=== PATIENT | male | born 1925 | race Caucasian/White ===

== ENCOUNTER 2017-04-01 08:01 | Inpatient (IN) | payer MEDICARE, OTHER ==
--- NOTE | 2017-04-01 08:18 | EKG REPORT ---
SEVERITY:- ABNORMAL ECG - AFIB/FLUTTER AND VENTRICULAR-PACED RHYTHM : Confirmed by: Turner Luke MD 01-Apr-2017 08:17:27
[2017-04-01 09:39] LABS: TROPONIN I < 0.012 ng/mL
--- NOTE | 2017-04-01 09:59 | ER Document Report ---
ED General - General Mode of Arrival: Wheelchair Information source: Patient TRAVEL OUTSIDE OF THE [place] IN LAST 30 DAYS: No - HPI Patient complains to provider of: Chest Tightness Onset: Other - "Few days ago" Onset/Duration: Gradual, Persistent Associated symptoms: Productive cough, Leg swelling, Shortness of breath, Weakness Exacerbated by: Supine <MERE BLAIR - Last Filed: 04/01/17 09:50> <AUTUMN ALARCON - Last Filed: 04/01/17 10:51> - General Chief Complaint: Chest Pressure Stated Complaint: CHEST PAIN Notes: Patient is an 89-year-old male presenting to the emergency department concerned of chest tightness onset a few days ago. Patient reports the tightness worsens with laying down flat. Patient also admits to increased fatigue, shortness of breath with exertion, productive cough, leg swelling, cold extremities, and pale skin. Patient has a history of asthma, atrial fibrillation, hypertension, hyperlipidemia. Patient sees his doctor every few days to get his bleeding time checked, and was told it was high on Tuesday, March 30. Patient's primary care physician is Dr. Posada, and his chief transfer and pumphouse operator is Dr. Stovall (MERE BLAIR) - Related Data Allergies/Adverse Reactions: aspirin Allergy (Verified 04/01/17 08:15) Past Medical History - General Information source: Patient, Relative - Daughter, [facility] Records - Social History Smoking Status: Never Smoker Chew tobacco use (# tins/day): No Frequency of alcohol use: None Drug Abuse: None Lives with: Spouse/Significant other Family History: Reviewed & Not Pertinent Patient has suicidal ideation: No Patient has homicidal ideation: No - Past Medical History Cardiac Medical History: Reports: Hx Atrial Fibrillation, Hx Hypercholesterolemia, Hx Hypertension Pulmonary Medical History: Reports: Hx Asthma Past Surgical History: Reports: Hx Cardiac Catheterization - Pacemaker, Hx Orthopedic Surgery - wrist, Other - Prostate <MERE BLAIR - Last Filed: 04/01/17 09:50> Review of Systems - Review of Systems Constitutional: See HPI, Malaise, Weakness, Other - Cold extremities EENT: No symptoms reported Cardiovascular: See HPI, Chest pain - Tightness Respiratory: See HPI, Cough, Short of breath - With exertion, Sputum Gastrointestinal: No symptoms reported Genitourinary: No symptoms reported Male Genitourinary: No symptoms reported Musculoskeletal: No symptoms reported Skin: No symptoms reported Hematologic/Lymphatic: No symptoms reported Neurological/Psychological: No symptoms reported -: Yes All other systems reviewed and negative <MERE BLAIR - Last Filed: 04/01/17 09:50> Physical Exam - General General appearance: Alert - HEENT Head: Normocephalic, Atraumatic Eyes: Normal Pupils: PERRL - Respiratory Respiratory status: No respiratory distress Chest status: Nontender Breath sounds: Productive cough - Cardiovascular Rhythm: Regular Heart sounds: Normal auscultation Murmur: No - Abdominal Inspection: Normal Distension: No distension Bowel sounds: Normal Tenderness: Nontender Organomegaly: No organomegaly - Back Back: Normal, Nontender - Extremities General upper extremity: Normal inspection, Nontender General lower extremity: Edema - 3+ pitting edema Calf: Other - Neurological Neuro grossly intact: Yes Cognition: Normal Orientation: AAOx4 Perri Coma Scale Eye Opening: Spontaneous Perri Coma Scale Verbal: Oriented [place] Coma Scale Motor: Obeys Commands Perri Coma Scale Total: 15 Speech: Normal - Psychological Associated symptoms: Normal affect, Normal mood - Skin Skin Temperature: Warm Skin Moisture: Dry Skin Color: Normal <MERE BLAIR - Last Filed: 04/01/17 09:50> Course - Laboratory Result Diagrams: 04/01/17 08:51 04/01/17 08:51 <MERE BLAIR - Last Filed: 04/01/17 09:50> - Laboratory Result Diagrams: 04/01/17 10:05 04/01/17 08:51 - Diagnostic Test Radiology reviewed: Image reviewed, Reports reviewed - Chest x-ray showed bilateral pleural effusions much larger on the left than the right. Possible loculated effusion. There is fluid in the fissure on the right. - EKG Interpretation by Vt EKG shows normal: Cement, Intervals, QRS Complexes, ST-T Waves Rate: Normal - 63 Rhythm: A.Fib, A.Flutter, Other - Ventricular paced rhythm When compared to previous EKG there are: Previous EKG unavailable - Consults Dr. Pereira Time consulted: 10:50 Consulted provider: will come to ER <AUTUMN ALARCON - Last Filed: 04/01/17 10:51> - Vital Signs Vital signs: Temp Pulse Resp BP Pulse Ox 97.5 F 63 19 134/70 H 97 05/05/17 08:12 04/01/17 08:12 04/01/17 09:01 04/01/17 09:01 04/01/17 09:05 - Laboratory Laboratory results interpreted by me: 04/01/17 04/01/17 04/01/17 08:51 08:51 08:51 RBC Hgb Hct Seg Neutrophils % Lymphocytes % PT 48.5 H Sodium 134.0 L Chloride 97 L BUN 24 H Creatinine 1.36 H Est GFR (Non-Af Amer) 49 L Direct Bilirubin 0.5 H Creatine Kinase 54 L NT-Pro-B Natriuret Pep 4330 H Albumin 3.4 L 04/01/17 10:05 RBC 3.69 L Hgb 11.3 L Hct 34.7 L Seg Neutrophils % 80.8 H Lymphocytes % 7.5 L PT Sodium Chloride BUN Creatinine Est GFR (Non-Af Amer) Direct Bilirubin Creatine Kinase NT-Pro-B Natriuret Pep Albumin Discharge <MERE BLAIR - Last Filed: 04/01/17 09:50> - Discharge Admitting Provider: Hospitalist Unit Admitted: IMCU <AUTUMN ALARCON - Last Filed: 04/01/17 10:51> - Discharge Clinical Impression: Bilateral pleural effusion, Peripheral edema, Anticoagulation excessive, Chronic atrial fibrillation Dyspnea Qualifiers: Dyspnea type: shortness of breath Qualified Code(s): R06.02 - Shortness of breath Condition: Stable Disposition: ADMITTED INPATIENT Scribe Attestation: 04/01/17 10:51 I personally performed the services described in the documentation, reviewed and edited the documentation which was dictated to the scribe in my presence, and it accurately records my words and actions. (AUTUMN ALARCON) Scribe Documentation - Scribe Written by Ankit:: Mere Blair 04/01/2017 0951 acting as scribe for :: Brionna <MERE BLAIR - Last Filed: 04/01/17 09:50>
[2017-04-01 10:03] LABS: ALANINE AMINOTRANSFERASE 57 U/L (21-72); ALBUMIN 3.4 g/dL (3.5-5.0); ALKALINE PHOSPHATASE 106 U/L (38-126); ANION GAP 10 (5-19); ASPARTATE AMINO TRANSFERASE 51 U/L (17-59); BILIRUBIN,DIRECT 0.5 mg/dL (0.0-0.4); BILIRUBIN,TOTAL 1.1 mg/dL (0.2-1.3); BLOOD UREA NITROGEN 24 mg/dL (7-20); CALCIUM 9.1 mg/dL (8.4-10.2); CARBON DIOXIDE 27 mmol/L (22-30); CHLORIDE 97 mmol/L (98-107); CREATINE KINASE 54 U/L (55-170); CREATININE RESULT 1.36 mg/dL (0.52-1.25); GLUCOSE 92 mg/dL (75-110); POTASSIUM 4.7 mmol/L (3.6-5.0); TOTAL PROTEIN 6.3 g/dL (6.3-8.2)
[2017-04-01 10:14] LABS: ABSOLUTE EOSINOPHILS # (AUTO) 0.1 10^3/uL (0.0-0.6); ABSOLUTE LYMPHOCYTES (AUTO) 0.5 10^3/uL (0.5-4.7); ABSOLUTE MONOCYTES (AUTO) 0.7 10^3/uL (0.1-1.4); ABSOLUTE NEUT (AUTO) 5.1 10^3/uL (1.7-8.2); BASOPHILS % (AUTO) 0.2 % (0-2); EOSINOPHILS % (AUTO) 0.9 % (0-6); HEMATOCRIT 34.7 % (37.9-51.0); HEMOGLOBIN 11.3 g/dL (13.5-17.0); HGB HCT DIFFERENCE -0.8; LYMPHOCYTES % (AUTO) 7.5 % (13-45); MEAN CORPUSCULAR HEMOGLOBIN 30.8 pg (27.0-33.4); MEAN CORPUSCULAR HGB CONC 32.7 g/dL (32.0-36.0); MEAN CORPUSCULAR VOLUME 94 fl (80-97); MONOCYTES % (AUTO) 10.6 % (3-13); RED BLOOD COUNT 3.69 10^6/uL (4.35-5.55); RED CELL DISTRIBUTION WIDTH 13.5 % (11.5-14.0); SEGMENTED NEUTROPHILS % (AUTO) 80.8 % (42-78); WHITE BLOOD COUNT 6.4 10^3/uL (4.0-10.5)
[2017-04-01 10:42] LABS: PROTHROMBIN TIME 48.5 SEC (11.4-15.4)
[2017-04-01] MEDS ORDERED: FUROSEMIDE INJ/PF 20 MG/2 ML SDV IV ONE (10:45)
[2017-04-01] MEDS ORDERED: ONDANSETRON HCL INJ/PF 4 MG/2 ML SDV IV PRN (11:30)
[2017-04-01] MEDS ORDERED: ONDANSETRON 4 MG TAB.RAPDIS PO PRN (11:30)
[2017-04-01] MEDS ORDERED: ACETAMINOPHEN 325 MG TABLET PO PRN (11:30)
[2017-04-01] MEDS ORDERED: ALBUTEROL SULFATE 0.083% NEB 2.5 MG/3 ML AMPUL NEB PRN (11:30)
--- NOTE | 2017-04-01 11:52 | PDOC H&P ---
History of Present Illness Admission Date/PCP: 04/01/17 11:40 ANCA HERNANDEZ MD Patient complains of: Shortness of breath for the last several days. History of Present Illness: ILIANA WINN is a 89 year old male with no history of congestive heart failure who presents with a 3 or 4 day history of worsening shortness of breath. He also has had lower extremity edema along with orthopnea and PND. The patient is followed by [facility] cardiology and reports he has had atrial fibrillation but has no history of coronary artery disease and has never had congestive heart failure. He related to the emergency room physician that he had chest pain although he denied that to me. He denies any change in his dietary habits. He reports that he has been compliant with his medications. He has had dyspnea on exertion of about 20 feet over the last 2 days. He also reports having gained some weight. He denies have any palpitations or tachycardia. He thought that this may be related to his metoprolol. Past Medical History Cardiac Medical History: Reports: Atrial Fibrillation, Hyperlipidema, Hypertension Pulmonary Medical History: Reports: Asthma EENT Medical History: Reports: Other - Macular degeneration Neurological Medical History: Reports: None Endocrine Medical History: Reports: None Renal/ Medical History: Reports: None Malignancy Medical History: Reports: None GI Medical History: Reports: None Skin Medical History: Reports: None Psychiatric Medical History: Reports: None Traumatic Medical History: Reports: None Hematology: Reports: None Infectious Medical History: Reports: None Past Surgical History Past Surgical History: Reports: Orthopedic Surgery - wrist, Pacemaker, Other - Prostate Social History Information Source: Patient Lives with: Spouse/Significant other Smoking Status: Never Smoker Frequency of Alcohol Use: None Hx Recreational Drug Use: No Drugs: None - Advance Directive Resuscitation Status: Full Code Surrogate healthcare decision maker:: His Family History Family History: Father at age 86 from cancer. Mother at age 90 from a CVA. Parental Family History Reviewed: Yes Children Family History Reviewed: No Sibling(s) Family History Reviewed.: No Medication/Allergy Allergies/Adverse Reactions: aspirin Allergy (Verified 04/01/17 08:15) Review of Systems Constitutional: PRESENT: weight gain. ABSENT: chills, fever(s), headache(s) Eyes: ABSENT: visual disturbances Ears: ABSENT: hearing changes Cardiovascular: PRESENT: dyspnea on exertion, edema, orthropnea. ABSENT: chest pain, palpitations Respiratory: PRESENT: dyspnea. ABSENT: cough, hemoptysis, sputum Gastrointestinal: ABSENT: abdominal pain, constipation, diarrhea, hematemesis, hematochezia, nausea, vomiting Genitourinary: ABSENT: dysuria, hematuria Musculoskeletal: ABSENT: joint swelling Integumentary: ABSENT: rash, wounds Neurological: ABSENT: abnormal gait, abnormal speech, confusion, dizziness, focal weakness, syncope Psychiatric: ABSENT: anxiety, depression Endocrine: ABSENT: cold intolerance, heat intolerance, polydipsia, polyuria Hematologic/Lymphatic: ABSENT: easy bleeding, easy bruising Physical Exam Vital Signs: Temp Pulse Resp BP Pulse Ox 97.5 F 63 19 134/70 H 97 04/01/17 08:12 04/01/17 08:12 04/01/17 09:01 04/01/17 09:01 04/01/17 09:05 General appearance: PRESENT: no acute distress, well-developed, well-nourished Head exam: PRESENT: atraumatic, normocephalic Eye exam: PRESENT: conjunctiva pink, EOMI, PERRLA. ABSENT: scleral icterus Ear exam: PRESENT: normal external ear exam Mouth exam: PRESENT: moist, tongue midline Neck exam: ABSENT: carotid bruit, JVD, lymphadenopathy, thyromegaly Respiratory exam: PRESENT: decreased breath sounds - Decreased breath sounds in the bases with a few inspiratory rails., rales. ABSENT: rhonchi, wheezes Cardiovascular exam: PRESENT: irregular rhythm. ABSENT: diastolic murmur, rubs , systolic murmur Vascular exam: PRESENT: normal capillary refill GI/Abdominal exam: PRESENT: normal bowel sounds, soft. ABSENT: distended, guarding, mass, organolmegaly, rebound, tenderness Rectal exam: PRESENT: deferred Extremities exam: PRESENT: pedal edema, +2 edema. ABSENT: calf tenderness, clubbing Neurological exam: PRESENT: alert, awake, oriented to person, oriented to place , oriented to time, oriented to situation, CN II-XII grossly intact. ABSENT: motor sensory deficit Psychiatric exam: PRESENT: appropriate affect Skin exam: PRESENT: dry, intact, warm. ABSENT: cyanosis, rash Results Impressions: Chest X-Ray 04/01/17 09:05 IMPRESSION: Bilateral pleural changes as noted above most consistent with bilateral pleural effusions. I cannot exclude a loculated component. There is an associated ovoid density projected in the right mid lung field which may represent fluid within the fissure. Followup followup films are recommended to exclude an underlying process. Other findings as noted above Assessment & Plan - Diagnosis (1) Congestive heart failure Is this a current diagnosis for this admission?: YesPlan: Patient has no previous history of congestive heart failure. He does have atrial fibrillation. He has had no change in his diet. We will check an echocardiogram to see what his systolic function is. We'll check serial cardiac enzymes to make certain that this is not an acute cardiac event although is unlikely. He reports that he's never had a cardiac catheterization. He is a very high functioning 89-year-old. We'll give IV Lasix. (2) Chronic atrial fibrillation Is this a current diagnosis for this admission?: YesPlan: The patient is rate controlled currently. He has been on Coumadin but is supratherapeutic. We'll continue to hold Coumadin and watch his INR daily. He is normally followed at [facility] cardiology. (3) Hypertension Is this a current diagnosis for this admission?: YesPlan: Blood pressure is under good control. (4) Benign prostatic hyperplasia Is this a current diagnosis for this admission?: YesPlan: The patient is asymptomatic at this time. He does have a history of having laser surgery on his prostate (5) Hyperlipidemia Is this a current diagnosis for this admission?: Yes (6) Anticoagulation excessive Is this a current diagnosis for this admission?: YesPlan: We'll continue to hold his Coumadin and monitor his INR daily. (7) Bilateral pleural effusion Is this a current diagnosis for this admission?: YesPlan: Most likely related to congestive heart failure. Will diuresis and repeat a chest x-ray in several days. - Time Time Spent: 50 to 70 Minutes - Inpatient Certification Medical Necessity: Need Close Monitoring Due to Risk of Patient Decompensation - Plan Summary Plan Summary: We'll admit as a regular inpatient. I anticipate he will require greater than 2 midnight stay because of his acute congestive heart failure and need for IV diuretics.
[2017-04-01 15:52] LABS: CREATINE KINASE MB 0.89 ng/mL (<4.55)
[2017-04-01 15:58] LABS: TROPONIN I < 0.012 ng/mL
[2017-04-01] MEDS ORDERED: TRAMADOL HCL 50 MG TABLET PO PRN (18:20)
--- NOTE | 2017-04-01 19:34 | XCELERA REPORT ---
[address] [address] Transthoracic Echocardiogram Report Name: ILIANA WINN Age: 89 yrs Gender: Male : 1925 Patient Status: Inpatient Patient Location: 3W\S\320\S\A Study Date: 04/01/2017 01:17 PM Procedure: A complete two-dimensional transthoracic echocardiogram was performed (2D, M-mode, spectral and color flow Doppler). The study was technically difficult with many images being suboptimal in quality. Reason For Study: new onset chf Ordering Physician: EMMANUEL TRAMMELL Performed By: Krista Barfield Interpretation Summary The study was technically difficult with many images being suboptimal in quality. The Ejection Fraction estimate is 45-50% Left ventricular systolic function is mildly reduced. Doppler measurements suggest pseudonormalized left ventricular relaxation, which is associated with grade II/IV or mild to moderate diastolic dysfunction There is borderline concentric left ventricular hypertrophy. The left ventricle is grossly normal size. Wall motion cannot be accurately commented on, but no definite regional wall motion abnormalities noted. The right ventricle is mild to moderately dilated. The right ventricular systolic function is normal. The right ventricle appears to be hypertrophied The left atrium is mildly dilated. The right atrium is mildly dilated. There is a mild amount of mitral regurgitation There is no mitral valve stenosis. No aortic regurgitation is present. There is no aortic valve stenosis There is a mild amount of tricuspid regurgitation There is moderate pulmonary hypertension by echo Right ventricular systolic pressure is estimated to be elevated at 50- 60mmHg. There is a mild amount of pulmonic regurgitation There is no pericardial effusion. The inferior vena cava appeared dilated and decreased < 50% with respiration (RAP 15-20 mmHg) MMode/2D Measurements \T\ Calculations RVDd: 2.6 cm LVIDd: 4.0 cm FS: 20.3 % Ao root diam: 2.1 cm IVSd: 0.94 cm LVIDs: 3.2 cm EDV(Teich): 71.1 ml Ao root area: 3.6 cm2 LVPWd: 0.85 cm ESV(Teich): 41.3 ml LA dimension: 4.2 cm EF(Teich): 41.9 % Doppler Measurements \T\ Calculations MV E max wyatt: MV P1/2t max wyatt: Ao V2 max: LV V1 max P.8 cm/sec 89.3 cm/sec 103.2 cm/sec 1.6 mmHg MV P1/2t: 56.7 msec Ao max PG: LV V1 max: MVA(P1/2t): 3.9 cm2 4.3 mmHg 62.7 cm/sec MV dec slope: 461.3 cm/sec2 PA V2 max: PI end-d wyatt: TR max wyatt: 80.9 cm/sec 104.5 cm/sec 297.3 cm/sec PA max PG: TR max P.6 mmHg 35.3 mmHg Left Ventricle The left ventricle is grossly normal size. There is borderline concentric left ventricular hypertrophy. Left ventricular systolic function is mildly reduced. The Ejection Fraction estimate is 45-50%. Doppler measurements suggest pseudonormalized left ventricular relaxation, which is associated with grade II/IV or mild to moderate diastolic dysfunction. Wall motion cannot be accurately commented on, but no definite regional wall motion abnormalities noted. Right Ventricle The right ventricle is mild to moderately dilated. The right ventricle appears to be hypertrophied. The right ventricular systolic function is normal. Atria The right atrium is mildly dilated. The left atrium is mildly dilated. Interarterial septum not well visualized and not well dopplered. Cannot comment on ASD/PFO presence. Mitral Valve There is mild mitral annular calcification. There is mild mitral leaflet calcification. There is no mitral valve stenosis. There is a mild amount of mitral regurgitation. Aortic Valve The aortic valve is not well visualized secondary to technical limitations. There is no aortic valve stenosis. No aortic regurgitation is present. Tricuspid Valve The tricuspid valve is not well visualized, but is grossly normal. There is no tricuspid stenosis. There is a mild amount of tricuspid regurgitation. There is moderate pulmonary hypertension by echo. Right ventricular systolic pressure is estimated to be elevated at 50-60mmHg. Pulmonic Valve The pulmonic valve is not well visualized. There is no pulmonic valvular stenosis. There is a mild amount of pulmonic regurgitation. Great Vessels The aortic root is not well visualized. The inferior vena cava appeared dilated and decreased < 50% with respiration (RAP 15-20 mmHg). Effusions There is no pericardial effusion. : EMMANUEL TRAMMELL > Cee Victor
[2017-04-01 21:37] LABS: CREATINE KINASE MB 0.83 ng/mL (<4.55)
[2017-04-01 21:45] LABS: TROPONIN I < 0.012 ng/mL
[2017-04-01] MEDS: FUROSEMIDE INJ/PF 20 MG/2 ML SDV IV SCH (22:14)
[2017-04-01] MEDS: SIMVASTATIN 40 MG TABLET PO SCH (22:15)
[2017-04-01] MEDS: FAMOTIDINE 20 MG TABLET PO SCH (22:15)
[2017-04-01] MEDS: METOPROLOL SUCCINATE 50 MG TAB.SR.24H PO SCH (22:16)
[2017-04-01 22:39] LABS: APPEARANCE,URINE CLEAR; BILIRUBIN,URINE NEGATIVE (NEGATIVE); GLUCOSE, URINE NEGATIVE (NEGATIVE); KETONES,URINE NEGATIVE (NEGATIVE); LEUKOCYTE ESTERASE,URINE NEGATIVE (NEGATIVE); NITRITE,URINE NEGATIVE (NEGATIVE); PROTEIN,URINE NEGATIVE (NEGATIVE); URINE SPECIFIC GRAVITY 1.006; UROBILINOGEN,URINE NEGATIVE mg/dL (<2.0)
[2017-04-02 05:55] LABS: HEMOGLOBIN 11.3 g/dL (13.5-17.0); HGB HCT DIFFERENCE 0.9; MEAN CORPUSCULAR HEMOGLOBIN 31.1 pg (27.0-33.4); MEAN CORPUSCULAR HGB CONC 34.2 g/dL (32.0-36.0); MEAN CORPUSCULAR VOLUME 91 fl (80-97); RED BLOOD COUNT 3.63 10^6/uL (4.35-5.55); RED CELL DISTRIBUTION WIDTH 13.1 % (11.5-14.0); WHITE BLOOD COUNT 6.5 10^3/uL (4.0-10.5)
[2017-04-02 06:20] LABS: ANION GAP 9 (5-19); BLOOD UREA NITROGEN 33 mg/dL (7-20); CALCIUM 8.7 mg/dL (8.4-10.2); CARBON DIOXIDE 29 mmol/L (22-30); CHLORIDE 98 mmol/L (98-107); CREATININE RESULT 1.48 mg/dL (0.52-1.25); GLUCOSE 83 mg/dL (75-110); PHOSPHORUS 3.7 mg/dL (2.5-4.5); POTASSIUM 3.8 mmol/L (3.6-5.0); SODIUM 135.7 mmol/L (137-145)
[2017-04-02] MEDS: METOPROLOL SUCCINATE 50 MG TAB.SR.24H PO SCH ×2 (08:16→21:04)
[2017-04-02] MEDS ORDERED: (PENDING PHARMACY ID) (Alfuzosin Hcl [Alfuzosin Hcl Er] 10 MG) PO SCH (10:00)
[2017-04-02] MEDS ORDERED: (PENDING PHARMACY ID) (Vitamin B Complex [Super B Complex] 1 EACH) PO SCH (10:00)
--- NOTE | 2017-04-02 10:01 | PDOC PROGRESS REPORT ---
Subjective Progress Note for:: 04/02/17 Subjective:: Reports he is much less short of breath. Physical Exam Vital Signs: Temp Pulse Resp BP Pulse Ox 98.0 F 65 18 113/64 98 04/02/17 07:16 04/02/17 08:00 04/02/17 08:00 04/02/17 07:16 04/02/17 08:00 Intake & Output 04/01/17 04/02/17 04/03/17 06:59 06:59 06:59 Intake Total 624 Output Total 1350 Balance -726 Weight 78.4 kg General appearance: PRESENT: no acute distress Eye exam: PRESENT: conjunctiva pink. ABSENT: scleral icterus Mouth exam: PRESENT: moist, tongue midline Neck exam: ABSENT: JVD Respiratory exam: PRESENT: rales - Few basilar rails. ABSENT: rhonchi, wheezes Cardiovascular exam: PRESENT: RRR. ABSENT: diastolic murmur, rubs, systolic murmur GI/Abdominal exam: PRESENT: normal bowel sounds, soft. ABSENT: distended, guarding, mass, organolmegaly, rebound, tenderness Extremities exam: PRESENT: pedal edema, +1 edema. ABSENT: calf tenderness, clubbing Neurological exam: PRESENT: alert, awake, oriented to person, oriented to place , oriented to time, oriented to situation, CN II-XII grossly intact. ABSENT: motor sensory deficit Psychiatric exam: PRESENT: appropriate affect Skin exam: PRESENT: dry, intact, warm. ABSENT: cyanosis, rash Results Laboratory Results: 04/02/17 05:11 04/02/17 05:11 04/01/17 04/02/17 04/02/17 22:05 05:11 05:11 WBC 6.5 RBC 3.63 L Hgb 11.3 L Hct 33.0 L MCV 91 MCH 31.1 MCHC 34.2 RDW 13.1 Plt Count 143 L Sodium 135.7 L Potassium 3.8 Chloride 98 Carbon Dioxide 29 Anion Gap 9 BUN 33 H Creatinine 1.48 H Est GFR ( Amer) 54 L Est GFR (Non-Af Amer) 45 L Glucose 83 Calcium 8.7 Phosphorus 3.7 Urine Color YELLOW Urine Appearance CLEAR Urine pH 6.0 Ur Specific [place] 1.006 Urine Protein NEGATIVE Urine Glucose (UA) NEGATIVE Urine Ketones NEGATIVE Urine Blood NEGATIVE Urine Nitrite NEGATIVE Ur Leukocyte Esterase NEGATIVE Urine WBC (Auto) 0 Urine RBC (Auto) 0 04/01/17 04/01/17 04/01/17 15:03 15:03 21:01 Creatine Kinase 38 L 41 L CK-MB (CK-2) 0.89 Troponin I < 0.012 04/01/17 21:01 Creatine Kinase CK-MB (CK-2) 0.83 Troponin I < 0.012 Impressions: Chest X-Ray 04/01/17 09:05 IMPRESSION: Bilateral pleural changes as noted above most consistent with bilateral pleural effusions. I cannot exclude a loculated component. There is an associated ovoid density projected in the right mid lung field which may represent fluid within the fissure. Followup followup films are recommended to exclude an underlying process. Other findings as noted above Assessment & Plan - Diagnosis (1) Congestive heart failure Is this a current diagnosis for this admission?: YesPlan: Patient is much improved with the IV Lasix. Echocardiogram done yesterday shows he has both systolic and diastolic dysfunction. We'll continue with the IV Lasix. (2) Chronic atrial fibrillation Is this a current diagnosis for this admission?: YesPlan: The patient is rate controlled currently. He has been on Coumadin but is supratherapeutic. We'll continue to hold Coumadin and watch his INR daily. He is normally followed at [facility] cardiology. (3) Hypertension Is this a current diagnosis for this admission?: YesPlan: Blood pressure is under good control. (4) Benign prostatic hyperplasia Is this a current diagnosis for this admission?: YesPlan: The patient is asymptomatic at this time. He does have a history of having laser surgery on his prostate (5) Hyperlipidemia Is this a current diagnosis for this admission?: Yes (6) Anticoagulation excessive Is this a current diagnosis for this admission?: YesPlan: We'll continue to hold his Coumadin and monitor his INR daily. (7) Bilateral pleural effusion Is this a current diagnosis for this admission?: YesPlan: Most likely related to congestive heart failure. Will diuresis and repeat a chest x-ray in several days. - Time Time Spent with patient: 25-34 minutes - Inpatient Certification Medical Necessity: Need Close Monitoring Due to Risk of Patient Decompensation
[2017-04-02] MEDS: ASCORBIC ACID 500 MG TABLET PO SCH (10:03)
[2017-04-02] MEDS: CHOLECALCIFEROL (D3) 1,000 UNIT TABLET PO SCH (10:03)
[2017-04-02] MEDS: FAMOTIDINE 20 MG TABLET PO SCH ×2 (10:03→21:04)
[2017-04-02] MEDS: CALCIUM CARBONATE 500 MG TABLET PO SCH (10:03)
[2017-04-02] MEDS: FERROUS SULFATE 325 MG TABLET PO SCH (10:03)
[2017-04-02] MEDS: FUROSEMIDE INJ/PF 20 MG/2 ML SDV IV SCH ×2 (10:04→21:03)
[2017-04-02] MEDS: SIMVASTATIN 40 MG TABLET PO SCH (21:04)
[2017-04-03 05:01] LABS: ABSOLUTE EOSINOPHILS # (AUTO) 0.1 10^3/uL (0.0-0.6); ABSOLUTE LYMPHOCYTES (AUTO) 0.8 10^3/uL (0.5-4.7); ABSOLUTE NEUT (AUTO) 5.4 10^3/uL (1.7-8.2); BASOPHILS % (AUTO) 0.4 % (0-2); EOSINOPHILS % (AUTO) 1.6 % (0-6); HEMATOCRIT 33.5 % (37.9-51.0); HEMOGLOBIN 11.1 g/dL (13.5-17.0); HGB HCT DIFFERENCE -0.2; LYMPHOCYTES % (AUTO) 11.4 % (13-45); MEAN CORPUSCULAR HEMOGLOBIN 30.6 pg (27.0-33.4); MEAN CORPUSCULAR VOLUME 93 fl (80-97); MONOCYTES % (AUTO) 13.9 % (3-13); RED BLOOD COUNT 3.62 10^6/uL (4.35-5.55); RED CELL DISTRIBUTION WIDTH 13.3 % (11.5-14.0); SEGMENTED NEUTROPHILS % (AUTO) 72.7 % (42-78); WHITE BLOOD COUNT 7.4 10^3/uL (4.0-10.5)
[2017-04-03 05:22] LABS: ANION GAP 8 (5-19); BLOOD UREA NITROGEN 39 mg/dL (7-20); CALCIUM 8.9 mg/dL (8.4-10.2); CARBON DIOXIDE 30 mmol/L (22-30); CHLORIDE 97 mmol/L (98-107); CREATININE RESULT 1.56 mg/dL (0.52-1.25); GLUCOSE 96 mg/dL (75-110); POTASSIUM 3.3 mmol/L (3.6-5.0); SODIUM 135.4 mmol/L (137-145)
--- NOTE | 2017-04-03 09:38 | PDOC PROGRESS REPORT ---
Subjective Progress Note for:: 04/03/17 Subjective:: Reports he is much less short of breath. Physical Exam Vital Signs: Temp Pulse Resp BP Pulse Ox 97.5 F 61 14 96/52 L 96 04/03/17 07:25 04/03/17 07:25 04/03/17 07:25 04/03/17 07:25 04/03/17 07:25 Intake & Output 04/02/17 04/03/17 04/04/17 06:59 06:59 06:59 Intake Total 624 1005 Output Total 1350 2625 Balance -726 -1620 Weight 78.4 kg 77.8 kg General appearance: PRESENT: no acute distress Eye exam: PRESENT: conjunctiva pink. ABSENT: scleral icterus Ear exam: PRESENT: normal external ear exam Mouth exam: PRESENT: moist, tongue midline Neck exam: ABSENT: JVD Respiratory exam: PRESENT: clear to auscultation jeanne. ABSENT: rales, rhonchi, wheezes Cardiovascular exam: PRESENT: RRR. ABSENT: diastolic murmur, rubs, systolic murmur GI/Abdominal exam: PRESENT: normal bowel sounds, soft. ABSENT: distended, guarding, mass, organolmegaly, rebound, tenderness Extremities exam: PRESENT: pedal edema, +1 edema. ABSENT: calf tenderness, clubbing Neurological exam: PRESENT: alert, awake, oriented to person, oriented to place , oriented to time, oriented to situation, CN II-XII grossly intact. ABSENT: motor sensory deficit Psychiatric exam: PRESENT: appropriate affect Skin exam: PRESENT: dry, intact, warm. ABSENT: cyanosis, rash Results Laboratory Results: 04/03/17 04:44 04/03/17 04:44 04/03/17 04/03/17 04:44 04:44 WBC 7.4 RBC 3.62 L Hgb 11.1 L Hct 33.5 L MCV 93 MCH 30.6 MCHC 33.0 RDW 13.3 Plt Count 146 L Seg Neutrophils % 72.7 Lymphocytes % 11.4 L Monocytes % 13.9 H Eosinophils % 1.6 Basophils % 0.4 Absolute Neutrophils 5.4 Absolute Lymphocytes 0.8 Absolute Monocytes 1.0 Absolute Eosinophils 0.1 Absolute Basophils 0.0 Sodium 135.4 L Potassium 3.3 L Chloride 97 L Carbon Dioxide 30 Anion Gap 8 BUN 39 H Creatinine 1.56 H Est GFR ( Amer) 51 L Est GFR (Non-Af Amer) 42 L Glucose 96 Calcium 8.9 04/01/17 04/01/17 04/01/17 15:03 15:03 21:01 Creatine Kinase 38 L 41 L CK-MB (CK-2) 0.89 Troponin I < 0.012 04/01/17 21:01 Creatine Kinase CK-MB (CK-2) 0.83 Troponin I < 0.012 Impressions: Chest X-Ray 04/01/17 09:05 IMPRESSION: Bilateral pleural changes as noted above most consistent with bilateral pleural effusions. I cannot exclude a loculated component. There is an associated ovoid density projected in the right mid lung field which may represent fluid within the fissure. Followup followup films are recommended to exclude an underlying process. Other findings as noted above Assessment & Plan - Diagnosis (1) Congestive heart failure Is this a current diagnosis for this admission?: YesPlan: Patient is much improved with the IV Lasix. Echocardiogram shows he has both systolic and diastolic dysfunction. We'll continue with the IV Lasix. (2) Chronic atrial fibrillation Is this a current diagnosis for this admission?: YesPlan: The patient is rate controlled currently. He has been on Coumadin but is supratherapeutic. PT/INR has not yet done this morning. He is normally followed at [facility] cardiology. (3) Hypertension Is this a current diagnosis for this admission?: YesPlan: Blood pressure is under good control. (4) Benign prostatic hyperplasia Is this a current diagnosis for this admission?: YesPlan: The patient is asymptomatic at this time. He does have a history of having laser surgery on his prostate (5) Hyperlipidemia Is this a current diagnosis for this admission?: Yes (6) Anticoagulation excessive Is this a current diagnosis for this admission?: YesPlan: We'll continue to hold his Coumadin and monitor his INR daily. Today's INR has not yet been completed (7) Bilateral pleural effusion Is this a current diagnosis for this admission?: YesPlan: Most likely related to congestive heart failure. Will continue with diuresis and repeat a chest x-ray tomorrow morning - Time Time Spent with patient: 25-34 minutes - Inpatient Certification Medical Necessity: Need Close Monitoring Due to Risk of Patient Decompensation - Plan Summary Plan Summary: If he continues to improve we may be able to discharge home tomorrow after his chest x-ray.
[2017-04-03] MEDS: FAMOTIDINE 20 MG TABLET PO SCH ×2 (10:19→21:21)
[2017-04-03] MEDS: POTASSI CL 20 MEQ/50 ML RIDER 50 ML IV SCH ×2 (10:19→11:49)
[2017-04-03] MEDS: ASCORBIC ACID 500 MG TABLET PO SCH (10:19)
[2017-04-03] MEDS: METOPROLOL SUCCINATE 50 MG TAB.SR.24H PO SCH ×2 (10:19→21:20)
[2017-04-03] MEDS: CHOLECALCIFEROL (D3) 1,000 UNIT TABLET PO SCH (10:20)
[2017-04-03] MEDS: CALCIUM CARBONATE 500 MG TABLET PO SCH (10:20)
[2017-04-03] MEDS: FERROUS SULFATE 325 MG TABLET PO SCH (10:20)
[2017-04-03] MEDS: FUROSEMIDE INJ/PF 20 MG/2 ML SDV IV SCH ×2 (10:20→21:20)
[2017-04-03] MEDS: SIMVASTATIN 40 MG TABLET PO SCH (21:20)
[2017-04-04 08:26] VITALS: BP 118/60
[2017-04-04] MEDS: METOPROLOL SUCCINATE 50 MG TAB.SR.24H PO SCH (08:29)
[2017-04-04] MEDS: FUROSEMIDE INJ/PF 20 MG/2 ML SDV IV SCH (09:06)
[2017-04-04] MEDS: FAMOTIDINE 20 MG TABLET PO SCH (09:07)
[2017-04-04] MEDS: CALCIUM CARBONATE 500 MG TABLET PO SCH (09:07)
[2017-04-04] MEDS: ASCORBIC ACID 500 MG TABLET PO SCH (09:07)
[2017-04-04] MEDS: CHOLECALCIFEROL (D3) 1,000 UNIT TABLET PO SCH (09:07)
--- NOTE | 2017-04-04 09:08 | PDOC DISCHARGE SUMMARY ---
General - Admit/Disc Date/PCP Admission Date/Primary Care Provider: 04/01/17 11:30 ANCA HERNANDEZ MD Discharge Date: 04/04/17 - Discharge Diagnosis (1) Congestive heart failure Is this a current diagnosis for this admission?: YesSummary: Both systolic and diastolic failure on echocardiogram (2) Chronic atrial fibrillation Is this a current diagnosis for this admission?: Yes (3) Hypertension Is this a current diagnosis for this admission?: Yes (4) Benign prostatic hyperplasia Is this a current diagnosis for this admission?: Yes (5) Hyperlipidemia Is this a current diagnosis for this admission?: Yes (6) Anticoagulation excessive Is this a current diagnosis for this admission?: Yes (7) Bilateral pleural effusion Is this a current diagnosis for this admission?: Yes - Additional Information Resuscitation Status: Full Code Discharge Diet: Cardiac Discharge Activity: Activity As Tolerated, Weigh Daily Home Medications: Alfuzosin HCl [Alfuzosin HCl ER] 10 mg PO DAILY 04/01/17 Ascorbic Acid [Vitamin C 500 mg Tablet] 500 mg PO DAILY 04/01/17 Calcium Carbonate [Calcium] 500 mg PO DAILY 04/01/17 Cholecalciferol (Vitamin D3) [Vitamin D3 1000 Unit Tablet] 1,000 unit PO DAILY 04/01/17 Ferrous Sulfate [Feosol] 325 mg PO DAILY 04/01/17 Metoprolol Succinate [Toprol Xl 50 mg Tab.sr] 50 mg PO QAM 04/01/17 Metoprolol Succinate [Toprol Xl 50 mg Tab.sr] 100 mg PO QHS 04/01/17 Simvastatin 40 mg PO QHS 04/01/17 Tramadol HCl [Ultram 50 mg Tablet] 50 mg PO Q6HP PRN 04/01/17 Vitamin B Complex [Super B Complex] 1 each PO DAILY 04/01/17 Furosemide [Lasix] 20 mg PO DAILY #30 tablet 04/04/17 History of Present Illness History of Present Illness: ILIANA WINN is a 89 year old male with no history of congestive heart failure who presents with a 3 or 4 day history of worsening shortness of breath. He also has had lower extremity edema along with orthopnea and PND. The patient is followed by [facility] cardiology and reports he has had atrial fibrillation but has no history of coronary artery disease and has never had congestive heart failure. He related to the emergency room physician that he had chest pain although he denied that to me. He denies any change in his dietary habits. He reports that he has been compliant with his medications. He has had dyspnea on exertion of about 20 feet over the last 2 days. He also reports having gained some weight. He denies have any palpitations or tachycardia. He thought that this may be related to his metoprolol. Hospital Course Hospital Course: 89-year-old gentleman who presented with dyspnea on exertion and was found to be in congestive heart failure with pleural effusions. Patient was admitted and started on IV Lasix. Patient had a good diuresis and improvement in his respiratory status. The patient's repeat chest x-ray still shows some effusion present but improved. The patient also was coagulopathic when he presented and his Coumadin was held. The patient's creatinine was normal when he presented but did increase with diuresis. The patient may have a component of chronic renal failure given his congestive heart failure. I discussed with the patient that he will have repeat blood work in a week to follow-up on his creatinine make certain has not increased any further. The patient's Coumadin will be held until he follows up with his genetic engineer to see whether or not he needs to continue with anticoagulation. The patient does have atrial fibrillation and will defer that decision to his genetic engineer. Physical Exam Vital Signs: Temp Pulse Resp BP Pulse Ox 97.4 F 61 16 118/60 98 04/04/17 08:37 04/04/17 08:37 04/04/17 08:37 04/04/17 08:37 04/04/17 08:37 Intake & Output 04/03/17 04/04/17 04/05/17 06:59 06:59 06:59 Intake Total 1005 1690 Output Total 2625 700 Balance -1620 990 Weight 77.8 kg 73.8 kg General appearance: PRESENT: no acute distress Eye exam: PRESENT: conjunctiva pink. ABSENT: scleral icterus Ear exam: PRESENT: normal external ear exam Mouth exam: PRESENT: moist, tongue midline Neck exam: ABSENT: JVD Respiratory exam: PRESENT: clear to auscultation jeanne. ABSENT: rales, rhonchi, wheezes Cardiovascular exam: PRESENT: irregular rhythm. ABSENT: diastolic murmur, rubs , systolic murmur GI/Abdominal exam: PRESENT: normal bowel sounds, soft. ABSENT: distended, guarding, mass, organolmegaly, rebound, tenderness Extremities exam: PRESENT: pedal edema - Trace pedal edema.. ABSENT: calf tenderness, clubbing Neurological exam: PRESENT: alert, awake, oriented to person, oriented to place , oriented to time, oriented to situation, CN II-XII grossly intact. ABSENT: motor sensory deficit Psychiatric exam: PRESENT: appropriate affect Skin exam: PRESENT: dry, intact, warm. ABSENT: cyanosis, rash Results Laboratory Results: 04/03/17 04:44 04/03/17 04:44 04/01/17 04/01/17 04/01/17 15:03 15:03 21:01 Creatine Kinase 38 L 41 L CK-MB (CK-2) 0.89 Troponin I < 0.012 04/01/17 21:01 Creatine Kinase CK-MB (CK-2) 0.83 Troponin I < 0.012 Impressions: Chest X-Ray 04/04/17 07:00 IMPRESSION: Mild improved aeration of the right lung. Moderate lower chest effusions of-opacity persist, left more than right. Qualifiers PATEINT BEING DISCHARGED WITH ANY OF THE FOLLOWING DIAGNOSIS?: No Plan Discharge Plan: Patient is discharged home in stable condition. Will follow with primary care in cardiology in 1 week. Will hold his Coumadin until he follows up with his genetic engineer to see their opinion as to whether or not he should continue with it. The patient's creatinine has increased and recommended he get a repeat basic metabolic profile done in 1 week. Time Spent: Greater than 30 Minutes
[2017-04-04] MEDS: FERROUS SULFATE 325 MG TABLET PO SCH (09:11)
[2017-04-04] MEDS ORDERED: TAMSULOSIN HCL 0.4 MG CAP.SR.24H PO SCH (10:00)
[2017-04-04] MEDS ORDERED: MULTIVIT-STRESS FORMULA/ZINC TABLET PO SCH (10:00)
== END 2017-04-04 10:33 | disposition home or self-care (01) | DRG 291 ==
LOC: ER 08:01 → EH 11:30 → UNDOADMIN 11:40 → 3W 14:34
PROVIDERS: ADMIT Family Medicine; ATTEND Family Medicine
PROC: 3E0F73Z Introduction of Anti-inflammatory into Respiratory Tract, Via Natural or Artificial Opening (ICD-10-PCS; principal; 2017-04-01)
DX: I13.0 Hypertensive heart and chronic kidney disease with heart failure and stage 1 through stage 4 chronic kidney disease, or unspecified chronic kidney disease (principal); I50.43 Acute on chronic combined systolic (congestive) and diastolic (congestive) heart failure; N18.9 Chronic kidney disease, unspecified; J45.909 Unspecified asthma, uncomplicated; E78.5 Hyperlipidemia, unspecified; I48.2 Chronic atrial fibrillation; R79.1 Abnormal coagulation profile; H35.30 Unspecified macular degeneration; N40.0 Benign prostatic hyperplasia without lower urinary tract symptoms; Z88.6 Allergy status to analgesic agent; Z79.01 Long term (current) use of anticoagulants
CPT/HCPCS: 36415; 71010; 71020; 80048; 80053; 81001; 82550; 82553; 83880; 84100; 84484; 85025; 85027; 85610; 93005; 93010; 93306; 99285; J1940; J3480; J3490; S0119

== ENCOUNTER 2017-04-08 01:38 | Emergency (ER) | payer MEDICARE, OTHER ==
[2017-04-08 02:17] LABS: ABSOLUTE EOSINOPHILS # (AUTO) 0.1 10^3/uL (0.0-0.6); ABSOLUTE LYMPHOCYTES (AUTO) 0.7 10^3/uL (0.5-4.7); ABSOLUTE MONOCYTES (AUTO) 0.7 10^3/uL (0.1-1.4); ABSOLUTE NEUT (AUTO) 4.5 10^3/uL (1.7-8.2); BASOPHILS % (AUTO) 0.7 % (0-2); EOSINOPHILS % (AUTO) 1.9 % (0-6); HEMATOCRIT 34.2 % (37.9-51.0); HEMOGLOBIN 11.4 g/dL (13.5-17.0); LYMPHOCYTES % (AUTO) 11.3 % (13-45); MEAN CORPUSCULAR HEMOGLOBIN 30.6 pg (27.0-33.4); MEAN CORPUSCULAR HGB CONC 33.4 g/dL (32.0-36.0); MEAN CORPUSCULAR VOLUME 92 fl (80-97); MONOCYTES % (AUTO) 10.9 % (3-13); RED BLOOD COUNT 3.73 10^6/uL (4.35-5.55); RED CELL DISTRIBUTION WIDTH 13.5 % (11.5-14.0); SEGMENTED NEUTROPHILS % (AUTO) 75.2 % (42-78); WHITE BLOOD COUNT 6.1 10^3/uL (4.0-10.5)
[2017-04-08 02:29] LABS: ALANINE AMINOTRANSFERASE 53 U/L (21-72); ALBUMIN 3.5 g/dL (3.5-5.0); ALKALINE PHOSPHATASE 107 U/L (38-126); ANION GAP 11 (5-19); ASPARTATE AMINO TRANSFERASE 57 U/L (17-59); BILIRUBIN,DIRECT 0.4 mg/dL (0.0-0.4); BILIRUBIN,TOTAL 0.8 mg/dL (0.2-1.3); BLOOD UREA NITROGEN 35 mg/dL (7-20); CALCIUM 8.9 mg/dL (8.4-10.2); CARBON DIOXIDE 33 mmol/L (22-30); CHLORIDE 91 mmol/L (98-107); CREATININE RESULT 1.75 mg/dL (0.52-1.25); GLUCOSE 111 mg/dL (75-110); POTASSIUM 3.7 mmol/L (3.6-5.0); SODIUM 134.6 mmol/L (137-145)
[2017-04-08 05:44] LABS: APPEARANCE,URINE SLIGHTLY-CLOUDY; BILIRUBIN,URINE NEGATIVE (NEGATIVE); GLUCOSE, URINE NEGATIVE (NEGATIVE); KETONES,URINE NEGATIVE (NEGATIVE); LEUKOCYTE ESTERASE,URINE NEGATIVE (NEGATIVE); NITRITE,URINE NEGATIVE (NEGATIVE); PROTEIN,URINE NEGATIVE (NEGATIVE); URINE SPECIFIC GRAVITY 1.008; UROBILINOGEN,URINE NEGATIVE mg/dL (<2.0)
--- NOTE | 2017-04-08 06:43 | ER Document Report ---
ED General - General Chief Complaint: Urinary Retention Stated Complaint: UNABLE TO URINATE Time Seen by Provider: 04/08/17 04:53 Mode of Arrival: Ambulatory Information source: Patient, Relative TRAVEL OUTSIDE OF THE [place] IN LAST 30 DAYS: No - HPI Notes: Patient with a history of chronic atrial fibrillation, congestive heart failure hypertension and BPH who is status post previous laser prostate surgery 4 years ago was recently hospitalized from 04/01-04/04 related to CHF flareup and was diuresed now presents with complaint that he has been unable to urinate completely and reports bladder fullness. He reports a history of the same in the past and used to have to catheterize himself. He states he's been compliant with his medications which include afluzosin. Patient denies any fever or difficulty breathing or back pain or nausea. - Related Data Allergies/Adverse Reactions: aspirin Allergy (Verified 04/08/17 01:49) Past Medical History - General Information source: Patient - Social History Smoking Status: Never Smoker Frequency of alcohol use: None Drug Abuse: None Lives with: Family Family History: Reviewed & Not Pertinent - Past Medical History Cardiac Medical History: Reports: Hx Atrial Fibrillation, Hx Hypercholesterolemia, Hx Hypertension Pulmonary Medical History: Reports: Hx Asthma Renal/ Medical History: Denies: Hx Peritoneal Dialysis Past Surgical History: Reports: Hx Cardiac Catheterization - Pacemaker, Hx Orthopedic Surgery - wrist, Hx Pacemaker, Other - Prostate Review of Systems - Review of Systems Notes: REVIEW OF SYSTEMS: CONSTITUTIONAL : Denies fever, chills, or sweats. Denies recent illness. EENT: Denies eye, ear, throat, or mouth pain or symptoms. Denies nasal or sinus congestion or discharge. Denies throat, tongue, or mouth swelling or difficulty swallowing. CARDIOVASCULAR: Denies chest pain. Denies palpitations or racing or irregular heart beat. Reports slightly improved ankle edema since diuresis earlier this week. RESPIRATORY: Denies cough, cold, or chest congestion. Denies shortness of breath, difficulty breathing, or wheezing. GASTROINTESTINAL: Denies abdominal pain or distention. Denies nausea, vomiting , or diarrhea. Denies blood in vomitus, stools, or per rectum. Denies black, tarry stools. Reports very mild constipation. GENITOURINARY: Denies painful urination, burning, frequency, blood in urine, or discharge. MUSCULOSKELETAL: Denies back or neck pain or stiffness. Denies joint pain or swelling. SKIN: Denies rash, lesions or sores. HEMATOLOGIC : Denies easy bruising or bleeding. LYMPHATIC: Denies swollen, enlarged glands. NEUROLOGICAL: Denies confusion or altered mental status. Denies passing out or loss of consciousness. Denies dizziness or lightheadedness. Denies headache. Denies weakness or paralysis or loss of use of either side. Denies problems with gait or speech. Denies sensory loss, numbness, or tingling. Denies seizures. PSYCHIATRIC: Denies anxiety or stress. Denies depression, suicidal ideation, or homicidal ideation. ALL OTHER SYSTEMS REVIEWED AND NEGATIVE. Dictation was performed using [employer] voice recognition software -: Yes ROS unobtainable due to patient's medical condition Physical Exam - Vital signs Vitals: Temp Pulse Resp BP Pulse Ox 97.6 F 64 20 112/63 96 04/08/17 01:49 04/08/17 01:49 04/08/17 01:49 04/08/17 01:49 04/08/17 01:49 - Notes Notes: PHYSICAL EXAMINATION: GENERAL: Well-appearing, well-nourished and in no acute distress. HEAD: Atraumatic, normocephalic. EYES: Pupils equal round and reactive to light, extraocular movements intact, sclera anicteric, conjunctiva are normal. ENT: Nares patent, oropharynx clear without exudates. Moist mucous membranes. NECK: Normal range of motion, supple without lymphadenopathy LUNGS: Breath sounds clear to auscultation bilaterally and equal. No wheezes rales or rhonchi. HEART: Irregular rhythm with controlled rate of 80 with 1/6 systolic ejection murmur best auscultated over the apex. No appreciable gallop or rub. ABDOMEN: Soft, nontender abdomen. No guarding, no rebound. No masses appreciated. Mild bladder fullness noted. Musculoskeletal: Normal range of motion. No cyanosis. No CVA tenderness. Patient has 2+ bilateral lower extremity edema which he states is improved versus previous. NEUROLOGICAL: Cranial nerves grossly intact. Normal speech, normal gait. Normal sensory, motor exams PSYCH: Normal mood, normal affect. SKIN: Warm, Dry, normal turgor, no rashes or lesions noted. Rectal exam shows no stool in the vault. Prostate is small and nontender with possible postsurgical changes noted on exam. Course - Re-evaluation Re-evalutation: 04/08/17 06:41 Patient had Mi catheter placed and 420 mL's of urine was retrieved with relief of his discomfort. Repeat abdominal exam was nontender. Patient was given a leg bag, and he was familiar with how to use it. No evidence for significant congestive heart failure or any significant change in the patient's chronic renal insufficiency. 04/08/17 06:43 - Vital Signs Vital signs: Temp Pulse Resp BP Pulse Ox 97.4 F 66 16 110/57 L 95 04/08/17 05:20 04/08/17 05:20 04/08/17 05:20 04/08/17 05:20 04/08/17 05:20 - Laboratory Result Diagrams: 04/08/17 02:06 04/08/17 02:06 Laboratory results interpreted by me: 04/08/17 04/08/17 04/08/17 02:06 02:06 02:06 RBC 3.73 L Hgb 11.4 L Hct 34.2 L Lymphocytes % 11.3 L Sodium 134.6 L Chloride 91 L Carbon Dioxide 33 H BUN 35 H Creatinine 1.75 H Est GFR ( Amer) 45 L Est GFR (Non-Af Amer) 37 L Glucose 111 H NT-Pro-B Natriuret Pep 4690 H Total Protein 6.0 L Urine Ascorbic Acid 04/08/17 05:30 RBC Hgb Hct Lymphocytes % Sodium Chloride Carbon Dioxide BUN Creatinine Est GFR ( Amer) Est GFR (Non-Af Amer) Glucose NT-Pro-B Natriuret Pep Total Protein Urine Ascorbic Acid 40 H Discharge - Discharge Clinical Impression: Urinary retention due to benign prostatic hyperplasia, Renal insufficiency Condition: Stable Disposition: HOME, SELF-CARE Instructions: Urinary Retention ([facility]) Referrals: ANCA HERNANDEZ MD [Primary Care Provider] - Follow up as needed EVER CARLIN MD [NO LOCAL MD] - Follow up in 3-5 days
[2017-04-08 07:16] VITALS: BP 135/66
== END 2017-04-08 07:10 | disposition home or self-care (01) ==
LOC: ER 01:38
DX: N40.1 Benign prostatic hyperplasia with lower urinary tract symptoms (principal); R33.8 Other retention of urine; I12.9 Hypertensive chronic kidney disease with stage 1 through stage 4 chronic kidney disease, or unspecified chronic kidney disease; N18.9 Chronic kidney disease, unspecified; I48.2 Chronic atrial fibrillation; J45.909 Unspecified asthma, uncomplicated; Z98.890 Other specified postprocedural states; Z95.0 Presence of cardiac pacemaker; Z79.899 Other long term (current) drug therapy; Z88.6 Allergy status to analgesic agent
CPT/HCPCS: 36415; 51702; 80053; 81001; 83880; 85025; 99283

== ENCOUNTER 2017-04-30 11:41 | Emergency (ER) | payer MEDICARE, OTHER ==
[2017-04-30 11:46] VITALS: BP 105/50
[2017-04-30] MEDS ORDERED: LIDOCAINE 2% URO-JET 5 ML KIT MM ONE (12:50)
--- NOTE | 2017-04-30 12:53 | ER Document Report ---
HPI - HPI Patient complains to provider of: Leaking Lacey catheter Onset: This morning Onset/Duration: Gradual Quality of pain: No pain Pain Level: Denies Context: Pt had a Lacey catheter placed for urinary retention. Patient is to follow-up with his urologist on day of this week. Patient states that his urologist told him that he would have his catheter removed this week. Patient denies any fever or dysuria. Patient states his urine has looked darker in color. Associated Symptoms: denies: Fever Exacerbated by: Denies Relieved by: Denies Similar symptoms previously: No Recently seen / treated by doctor: Yes - ROS ROS below otherwise negative: Yes Systems Reviewed and Negative: Yes All other systems reviewed and negative - CONSTITUTIONAL Constitutional: DENIES: Fever, Chills - NEURO Neurology: DENIES: Weakness - CARDIOVASCULAR Cardiovascular: DENIES: Chest pain - GASTROINTESTINAL Gastrointestinal: DENIES: Abdominal Pain, Nausea, Patient vomiting - URINARY Urinary: DENIES: Dysuria, Urgency, Frequency - REPRODUCTIVE Reproductive: DENIES: : - MUSCULOSKELETAL Musculoskeletal: DENIES: Back Pain - DERM Skin Color: Normal Skin Problems: None Past Medical History - General Information source: Patient - Social History Smoking Status: Never Smoker Frequency of alcohol use: None Drug Abuse: None Occupation: none Lives with: Family Family History: Reviewed & Not Pertinent Patient has suicidal ideation: No Patient has homicidal ideation: No - Past Medical History Cardiac Medical History: Reports: Hx Atrial Fibrillation, Hx Hypercholesterolemia, Hx Hypertension Pulmonary Medical History: Reports: Hx Asthma Renal/ Medical History: Reports: Hx Benign Prostatic Hyperplasia. Denies: Hx Peritoneal Dialysis Past Surgical History: Reports: Hx Cardiac Catheterization - Pacemaker, Hx Orthopedic Surgery - wrist, Hx Pacemaker, Other - Prostate - Immunizations Hx Diphtheria, Pertussis, Tetanus Vaccination: Yes Vertical Provider Document - CONSTITUTIONAL Agree With Documented VS: Yes Exam Limitations: No Limitations General Appearance: WD/WN, No Apparent Distress Notes: leaking lacey catheter, leak is at tubing connection - INFECTION CONTROL TRAVEL OUTSIDE OF THE [place] IN LAST 30 DAYS: No - HEENT HEENT: Atraumatic, Normocephalic - NECK Neck: Normal Inspection - RESPIRATORY Respiratory: Breath Sounds Normal, No Respiratory Distress O2 Sat by Pulse Oximetry: 98 - CARDIOVASCULAR Cardiovascular: Regular Rate, Regular Rhythm - GI/ABDOMEN Gastrointestinal: Abdomen Soft, Abdomen Non-Tender - BACK Back: negative: CVA Tenderness-Right, CVA Tenderness-Left - MUSCULOSKELETAL/EXTREMETIES Musculoskeletal/Extremeties: MATERESA, FROM - NEURO Level of Consciousness: Awake, Alert, Appropriate Motor/Sensory: No Motor Deficit - DERM Integumentary: Warm, Dry, No Rash Course - Re-evaluation Re-evalutation: 04/30/17 14:39 lacey replaced, draining without difficulty. Patient's urine clear yellow - Vital Signs Vital signs: Temp Pulse Resp BP Pulse Ox 97.6 F 64 20 105/50 L 98 04/30/17 11:46 04/30/17 11:46 04/30/17 11:46 04/30/17 11:46 04/30/17 11:46 - Laboratory Laboratory results interpreted by me: 04/30/17 20:55 Labs- Entire Visit 04/30/17 13:45 Urine Color YELLOW Urine Appearance SLIGHTLY-CLOUDY Urine pH 7.0 Ur Specific [place] 1.005 Urine Protein NEGATIVE Urine Glucose (UA) NEGATIVE Urine Ketones NEGATIVE Urine Blood NEGATIVE Urine Nitrite NEGATIVE Urine Bilirubin NEGATIVE Urine Urobilinogen NEGATIVE Ur Leukocyte Esterase LARGE H Urine WBC (Auto) 35 Urine RBC (Auto) 2 Urine Bacteria (Auto) TRACE Urine Ascorbic Acid 40 H Discharge - Discharge Clinical Impression: Lacey catheter problem Qualifiers: Encounter type: initial encounter Qualified Code(s): T83.9XXA - Unspecified complication of genitourinary prosthetic device, implant and graft, initial encounter Condition: Stable Disposition: HOME, SELF-CARE Instructions: Lacey Catheter Care ([facility]) Additional Instructions: Follow-up tomorrow with urologist as planned Cultures pending, we will call you if you need any different treatment. Return as needed for any new or worsening symptoms. Referrals: ANCA HERNANDEZ MD [Primary Care Provider] - Follow up as needed EVER CARLIN MD [NO LOCAL MD] - 05/02/17
[2017-04-30 14:19] LABS: APPEARANCE,URINE SLIGHTLY-CLOUDY; BILIRUBIN,URINE NEGATIVE (NEGATIVE); GLUCOSE, URINE NEGATIVE (NEGATIVE); KETONES,URINE NEGATIVE (NEGATIVE); LEUKOCYTE ESTERASE,URINE LARGE (NEGATIVE); NITRITE,URINE NEGATIVE (NEGATIVE); PROTEIN,URINE NEGATIVE (NEGATIVE); URINE SPECIFIC GRAVITY 1.005; UROBILINOGEN,URINE NEGATIVE mg/dL (<2.0)
== END 2017-04-30 15:00 | disposition home or self-care (01) ==
LOC: ER 11:41
DX: T83.031A Leakage of indwelling urethral catheter, initial encounter (principal); Y84.6 Urinary catheterization as the cause of abnormal reaction of the patient, or of later complication, without mention of misadventure at the time of the procedure; R33.9 Retention of urine, unspecified; I10 Essential (primary) hypertension; J45.909 Unspecified asthma, uncomplicated; Z95.0 Presence of cardiac pacemaker
CPT/HCPCS: 99283; 51702; 87086; 87088; 81001; 87186; A9270; J3490